=== PATIENT | female | born 1940 | race Caucasian/White ===

== ENCOUNTER 2016-06-23 15:41 | Day surgery (SDC) | payer MEDICARE ==
[~2016-06-23] VITALS: Ht 157.5 cm; Wt 71.7 kg
[2016-06-23 12:24] VITALS: BP 128/71; PULSE 98; RESP 16; O2SAT 97
[2016-06-23 13:06] VITALS: BP 135/66; PULSE 100; RESP 14; O2SAT 90
[2016-06-23 13:12] VITALS: BP 127/66; PULSE 78; RESP 14; O2SAT 97
[2016-06-23 13:22] VITALS: BP 127/70; PULSE 83; RESP 16; O2SAT 97
[~2016-06-23 15:41] MED LIST: ACET325T51 PO; AMLO5TAB2 PO; ANTI1CAP2 PO; ATOR40TA69 PO; CALC600T12 PO; CHOL100045 PO; CHOL200047 PO; COLE1TAB2 PO; HYDR25TA4 PO; IBUP200C PO; LORA0.5T PO; MILK500C PO; NAPR220C11 PO; OMEG-38 PO; Sodium Chloride LOK Flush 10 mL Syringe IVFLUSH SCH; VITA400C64 PO; fentaNYL-PF 50 mCg/mL 2 mL Inj IVPUSH PRN
--- NOTE | 2016-06-23 16:00 | ENDO ---
[address] [address] ENDOSCOPY PROCEDURE PATIENT: CHRISTIE PORTER : 1940 MR#: [id number] ADMIT: 06/23/2016 JOB ID: [id number] DATE OF SERVICE: 06/23/2016 PRIMARY CARE PHYSICIAN: Roberto Mendoza MD. PROCEDURE: Esophagogastroduodenoscopy with biopsies and polypectomy. INDICATION: The patient is a 76-year-old female with a history of breast cancer who on recent PET scan was noted to have increased FDG uptake in the distal esophagus. Therefore, a diagnostic upper endoscopy was performed. EQUIPMENT: GIF-H180. SEDATION: 1. Versed 5 mg. 2. Fentanyl 100 mcg. COMPLICATIONS: None identified. PROCEDURE INFORMATION: The patient was brought into the endoscopy suite and placed in the left lateral decubitus position. Sedation was achieved using the above-stated medications. A bite block was placed. The endoscope was then inserted through the mouth and advanced under direct visualization through the oropharynx, down the pharynx, esophagus and stomach. The scope was then advanced through the pylorus into the second portion of the duodenum. Duodenum appeared unremarkable. Scope was then slowly withdrawn. Retroflexed views were obtained in the stomach. There was a small polyp in the cardia. This was removed with a cold forceps. The GE junction was at 35 cm. It was irregular with two linear ulcers with scarring. Both of these were biopsied with a cold forceps. The scope was then slowly withdrawn. The rest of the esophagus appeared unremarkable. The patient tolerated the entire procedure without complication. FINDINGS: 1. Small gastric polyp. 2. Ulceration and scarring in the distal esophagus. RECOMMENDATIONS: Await histopathology.
--- NOTE | 2016-06-25 15:49 | PATH ---
SURGICAL PATHOLOGY Attending Physician:Xavier Fernandez MD CASE STATUS: Signed Out PATIENT NAME: CHRISTIE PORTER PID: [id number] : 1940 DATE COLLECTED:06/23/2016 20:09 SPECIMEN: 1: Stomach, Polyp, Biopsy 2: Esophagus, Biopsy CLINICAL HISTORY: 1). CARDIA POLYP BIOPSIES 2). DISTAL ESOPHAGUS BIOPSIES FINAL DIAGNOSIS: 1.CARDIA POLYP BIOPSIES: CARDIA-TYPE MUCOSA WITH NO SIGNIFICANT DIAGNOSTIC ABNORMALITY. Negative for intestinal metaplasia. Negative for dysplasia and malignancy. 2.DISTAL ESOPHAGUS, BIOPSIES: ULCERATED SQUAMOUS MUCOSA. A PAS STAIN IS NEGATIVE FOR FUNGAL ORGANISMS. Negative for dysplasia and malignancy. ICD10 codeR10.13 GROSS DESCRIPTION: The specimen is received in two formalin filled containers labeled with the patient's name. 1). The specimen is sublabeled "cardia polyp" and consists of a 0.5 x 0.2 x 0.2 CM portion of tissue which is entirely submitted in cassette 1A. 2). The specimen is sublabeled "distal esophagus" and consists of a 0.6 x 0.1 x 0.1 CM portion of tissue which is entirely submitted in cassette 2A. 06/23/2016 DAC MICRO DESCRIPTION: 2. A PAS stain was performed to evaluate for fungal organisms and is negative. A control stain showed appropriate reactivity. ICD-9 CODES: CPT CODES: 1: 41341 2: 28659, 13816 Electronically Signed Out Yajaira Champion MD [facility] [address], [place] [address] Technical component performed at [facility], [facility] [address], [place], [address]
[2016-07-02] MEDS ORDERED: OXYB10TA PO (16:40)
[2016-07-02] MEDS ORDERED: PHEN-777 PO (16:40)
[2016-07-09] MEDS ORDERED: HYDR-4003 PO (08:28)
== END 2016-06-23 23:59 | disposition home or self-care (01) ==
LOC: END 15:41
PROVIDERS: ATTEND General Practice
DX: K31.7 Polyp of stomach and duodenum (principal); K22.9 Disease of esophagus, unspecified; E04.1 Nontoxic single thyroid nodule; I10 Essential (primary) hypertension; E78.00 Pure hypercholesterolemia, unspecified; D49.4 Neoplasm of unspecified behavior of bladder; Z87.891 Personal history of nicotine dependence; Z85.3 Personal history of malignant neoplasm of breast
CPT/HCPCS: 43239; G0500

== ENCOUNTER 2016-06-24 05:33 | Day surgery (SDC) | payer MEDICARE ==
[~2016-06-24] VITALS: Ht 157.5 cm; Wt 72.1 kg
[2016-06-24] VITALS (10 sets, daily range): BP systolic 112–154; BP diastolic 45–75; PULSE 86–102; RESP 14–18; O2SAT 90–97
[~2016-06-24 05:33] MED LIST changes: -ANTI1CAP2 PO; -CHOL100045 PO; +Levofloxacin 500 mg/100 mL D5W IV ONE; +Mitomycin Inj 40 MG in Syringe 1 EACH IRRIGATION ONE; -Sodium Chloride LOK Flush 10 mL Syringe IVFLUSH SCH; -fentaNYL-PF 50 mCg/mL 2 mL Inj IVPUSH PRN
[2016-06-24] MEDS ORDERED: MetoCLOpramide 5 mg/mL 2 mL Inj ONE (05:34)
[2016-06-24] MEDS ORDERED: EPHEDrine/NS 5 mg/mL 5 mL Syringe ONE (05:34)
[2016-06-24] MEDS ORDERED: Phenylephrine/NS 100 mCg/mL 10 mL Syringe IVPUSH ONE (05:34)
[2016-06-24] MEDS ORDERED: Dexamethasone 4 mg/mL Inj ONE (05:34)
[2016-06-24] MEDS ORDERED: fentaNYL-PF 50 mCg/mL 2 mL Inj ONE (05:34)
[2016-06-24] MEDS ORDERED: Propofol 10,000 mCg/mL 20 mL Inj ONE (05:34)
[2016-06-24] MEDS ORDERED: Ondansetron 2 mg/mL 2 mL Inj ONE (05:34)
[2016-06-24] MEDS: Lactated Ringer's 1,000 ML IV SCH ×2 (05:48→07:28)
[2016-06-24] MEDS ORDERED: Famotidine 20 mg/50 mL NS Premix IV ONE (07:21)
[2016-06-24] MEDS ORDERED: Ondansetron 2 mg/mL 2 mL Inj IVPUSH PRN (08:10)
[2016-06-24] MEDS ORDERED: HYDROmorphone 1 mg/mL Inj IVPUSH PRN (08:10)
[2016-06-24] MEDS ORDERED: Lactated Ringer's 1,000 ML IV SCH (08:10)
[2016-06-24] MEDS ORDERED: MetoCLOpramide 5 mg/mL 2 mL Inj IVPUSH PRN (08:10)
[2016-06-24] MEDS ORDERED: Labetalol 5 mg/mL 4 mL Inj IV PRN (08:10)
[2016-06-24] MEDS ORDERED: EPHEDrine Sulfate 50 mg/mL Inj IVPUSH PRN (08:10)
[2016-06-24] MEDS ORDERED: hydrALAZINE 20 mg/mL Inj IVPUSH PRN (08:10)
[2016-06-24] MEDS ORDERED: Phenylephrine 10,000 mCg/mL Inj IVPUSH PRN (08:10)
[2016-06-24] MEDS ORDERED: Atropine 0.4 mg/mL Inj IVPUSH PRN (08:10)
[2016-06-24] MEDS ORDERED: Lactated Ringer's 500 ML IV PRN (08:10)
[2016-06-24] MEDS ORDERED: fentaNYL-PF 50 mCg/mL 2 mL Inj IVPUSH PRN (08:10)
--- NOTE | 2016-06-24 08:12 | PCM.HPANE ---
Patient Data Surgeon Admitting Provider: Attending Provider:Tenzin Dockery MD Primary Care Physician:Roberto Mendoza MD Other Provider:[facility] Anesthesia Reason for Visit Bladder Tumor Ht/WT & BMI Height (Feet): 5 Height (Inches): 2 Weight (Kilograms): 72.1 Body Mass Index 29.00 Allergies Coded Allergies: TAPE (Verified Allergy, Severe, blisters (Paper OK), 12/11/13) latex (Verified Allergy, Severe, Garcia Skin, 12/11/13) quinine (Verified Allergy, Severe, rash, 12/11/13) iodine (Verified Allergy, Mild, THROAT TICKLE. IV CONTRAST ONLY, 06/24/16) Uncoded Allergies: Bee Stings (Allergy, Severe, Swelling/Hives, 05/06/10) Past Anesthesia History Anesthesia History: Positive for:: Anesthesia Reactions (awoke during prior surgery), Denies:: Abnormal Airway, Difficult Intubation, Fam Anesthesia Reaction, Fam Malignant Hypertherm, Malignant Hyperthermia Diabetes History Hx Diabetes?: No MRSA MRSA: No Medications Hypertension Medication: Yes Home Meds Incl Beta Baljit: No Reported Medications Acetaminophen 325 Mg [id number] Mg PO Q4H PRN For Fever Ref 0 06/23/16 Amlodipine 5 Mg Tablet5 Mg PO DAILY Ref 0 06/23/16 Lorazepam 0.5 Mg Tablet0.5 Mg PO TID PRN For Anxiety Ref 0 06/23/16 Milk Thistle 500 Mg [id number] Mg PO BID 06/22/16 Colestipol 1 Gm Tablet2 Gm PO BID 06/16/16 Cholecalciferol (Vitamin D3) (Vitamin D3)2,000 Unit Capsule2,000 Unit PO DAILY 06/16/16 Ibuprofen 200 Mg [id number] Mg PO QID PRN For Pain Ref 0 06/16/16 Naproxen Sodium (Aleve)220 Mg Qpfrccn165 Mg PO BID PRN For Pain 06/16/16 [place]-3/Dha/Epa/Fish Oil (Fish Oil 1,000 mg Softgel)1 Each Capsule2 Each PO DAILY 05/15/14 Calcium Carbonate (Calcium)600 Mg Ckoavk356 Mg PO DAILY 05/15/14 Hydrochlorothiazide 25 Mg Lwbmge35 Mg PO DAILY 30 Days Ref 0 12/11/13 Vitamin E Mixed (Vitamin E)400 Unit Pptjvgn926 Unit PO DAILY 30 Days 12/11/13 Atorvastatin Calcium 40 Mg Fzmakf94 Mg PO PM #30 TABLET Ref 0 12/11/13 Discontinued Reported Medications Cholecalciferol (Vitamin D3) (Vitamin D)1,000 Unit Capsule1,000 Unit PO DAILY # 1 BOTTLE Ref 0 06/22/16 Antiox#10/Om3/Dha/Epa/Lut/Zeax (I-Caps with Lutein-[place] 3 Sfg)1 Each Capsule1 Each PO BID 05/15/14 Citalopram 10 Mg Hoxmuk64 Mg PO AM Ref 0 05/15/14 Cholecalciferol (Vitamin D3) (Vitamin D-3)2,000 Unit Capsule2,000 Unit PO DAILY 12/11/13 History History of ENT Problems?: No HEENT History: Positive for:: Sinus Problem (HAY FEVER) Denies:: Abnormal Airway Difficult Intubation Dysphagia Hearing Problem Hx of Heart Problems?: Yes Cardiovascular History: Positive for:: Chest Pain (sometimes, not sure if its reflux) Hypertension Denies:: AICD Atrial Fibrillation Congestive Heart Failure Pacemaker Valvular Heart Disease Hx of Respiratory Problem?: No Respiratory History: Positive for:: Pneumonia Denies:: Asthma COPD Cough Emphysema Hemoptysis Oxygen Administration Tuberculosis Use of C-PAP Machine Hx Neurologic Problems?: Yes Neurological History: Positive for:: Headaches Denies:: CVA Multiple Sclerosis Parkinson's Disease Seizures TIA Hx of GI Problems?: Yes Gastrointestinal History: Positive for:: Gall Bladder Disease (removed) Denies:: Cirrhosis Diverticulitis (osis) Gastroesphageal Reflux Gastrointestinal Bleeding Hepatitis Hiatal Hernia Rectal Bleeding Other GI Pertinent History: persistent retrogastic lymph node being monitored Hx of Problems?: Yes Genitourinary History: Denies:: Kidney Stones HX of Peritoneal Dialysis: No Other Pertinent History: bladder tumor current admission problem Female Hx: Positive for:: Problems with Breasts? (right lumpectomy for CA) Denies:: Currently (hysterectomy) Skin History: Positive for:: History Skin Disorders? (SKIN ISSUES RT BREAST OVER ABCESS AREA) Denies:: Pressure Ulcers Hx Musculoskeletal Problems?: Yes Musculoskeletal History: Positive for:: Musculoskeletal Trauma (osteoporosis) Denies:: Joint Replacement Hx of Psycho/Social Problems?: No Psycho Social History: Positive for:: Anxiety Denies:: Hx Depression Hx Surgeries?: Yes (amelia/bso, appe, tayler, tonsil, rt lumpectomy) Hx Any Other Health Problems?: Yes Other History: Positive for:: Cancer (rt breast) Thyroid Disease (thyroid nodule being monitored) Denies:: Endocrine Disease Hospitalization History Blood Transfusions: Denies:: Blood Transfusions Hx Diabetes: No Hx Alcohol Use: Yes (OCCAS)Hx Substance Use: No Smoking Status: Former Smoker Have You Smoked inLast 12 mo: No Stop/Bang S-Snoring: Do You Snore Loudly: No T-Tired: feel tired, fatigued: No O-Obsered: Observed not breath: No P-Blood Pressure: treated: Yes B- Body Mass Index > 35 kg/m2: No A- Age over 50: Yes N- Neck Large Circumference: No G- Gender Male: No KAUR Total Score: 2 Risk Assessment Category Category 1A: Patient has history of documented sleep apnea, and HAS NOT received any narcotic, sedative or anesthesia administration during this stay. Category 1B: Patient has history of documented sleep apnea, and HAS received any narcotic , sedative or anesthesia administration during this stay Category 2: Patient has SUSPECTED Obstructive Sleep Apnea, and HAS received any narcotic , sedative or anesthesia administration during this stay. Category 3: Patient has SUSPECTED Obstructive Sleep Apnea and HAS NOT received narcotic, sedative or anesthesia administration during this stay. Category 4: Outpatient in Procedural Areas with known sleep apnea or who screen positive for High Risk via the STOP/BANG questionnaire. Exam Exam Vital Signs Vital Signs Date Time Temp Pulse Resp B/P Pulse Ox O2 Delivery O2 Flow Rate FiO2 06/24/16 05:59 36.9 98 16 154/75 95 Room Air General Appearance: Alert, Oriented X3, Cooperative HEENT/AIRWAY: MP 2, Neck Movement (FROM), Mouth Opening (3 FBMO) Lungs: Clear to Auscultation, Normal Air Movement Heart: Exam Unremarkable, Regular Rate/Rhythm, No Murmurs/Rubs/Gallops Meds/Labs/Diagnostics Admission Meds Current Medications Lactated Ringer's (Lr) 1,000 ml @ 120 mls/hr Q8H20M IV Last administered on t 05:48; Start 06/24/16 at 05:00; Stop 06/24/16 at 13:19 Plan Impression Patient chart reviewed, patient interviewed and anesthestic plan with risks, benefits, and alternatives discussed, and informed consent obtained. NPO Status: 06/23/16 ASA Physical Status: ASA2 Mod Systemic Disease Anesthetic Plan: GA Bene/Risks/Altern/Consents: Yes HP Complete Prior to Induction: Yes El Garcia MD Jun 24, 2016 07:04
[2016-06-24] MEDS ORDERED: Belladonna Alk-Opium 60 mg Rectal Suppository RECTAL ONE ×2 (08:13→08:14)
--- NOTE | 2016-06-24 08:58 | PCM.SURGPO ---
Immediate Operative Note Date of Surgery: Jun 24, 2016 Pre Operative Diagnosis Bladder tumors Post Operative Diagnosis Bladder tumors Procedure Cystoscopy, transurethral resection of bladder tumors (2-5cm) Surgeon and It Application Development Manager Surgeon: Tenzin Dockery MD Assistants: None Findings Cystoscopy revealed papillary bladder tumors x 2 (approx. 2-3cm R inferoposterior wall and approx. 1-2cm R inferolateral wall). Bladder tumors were resected in their entirety using bipolar loop electrocautery. B/L ureteral orifices were seen to be intact and well-preserved at the end of the case. Complications There were no periprocedural complications identified. Surgical Specimen Removed: Yes Specimen sent to Pathology: Yes Surgical Specimen description: R inferoposterior wall bladder tumor, R inferolateral wall bladder tumor Anesthetic Administered: GA Grafts, Implants: Other (20F silicone Doshi catheter to straight drainage) Output, Estimated Blood Loss: <5 Blood Admin during surgery: No Additional information Patient to be discharged home when stable, to return to see me in the office in 2-2.5 weeks for post-op visit and trial of void. Will leave Doshi catheter in for 2-2.5 weeks secondary to deep resection during TURBT. Tenzin Dockery MD Jun 24, 2016 08:58
--- NOTE | 2016-06-24 09:25 | PCM.DISURG ---
Surgical Discharge Instruction Date of Service Jun 24, 2016 Dates of Hospitalization Date of Hospital Admission Jun 24, 2016 Providers Admitting Physician: Tenzin Dockery MD Primary Care Physician: Roberto Mendoza MD Attending Physician: Tenzin Dockery MD Discharge Diagnosis Discharge Diagnosis Bladder tumors Post Operative diagnosis Bladder tumors Diet Discharge Diet: No restrictions, Other (Drink at least 10-12 8oz. glasses (3 liters) of fluids per day as long as there is blood in the urine) Activity Discharge Activity-General: No restrictions, No driving while taking narcotic Dressing and Incisional Care Hygiene: May shower Follow Up Plan Follow-up Provider (F9): Tenzin Dockery MD Follow-up appointment: Weeks (2 - 2.5 weeks for post-op visit and trial of void ) Call your provider for: Fever, Chills, Increasing abdominal pain, Vomiting, Other (Non-draining Doshi catheter, pain uncontrolled by pain medications) Tenzin Dockery MD Jun 24, 2016 09:25
[2016-06-24] MEDS ORDERED: HYDROcodone-APAP 5-325 mg Tablet PO PRN (09:30)
--- NOTE | 2016-06-24 09:41 | PCM.ANEP1 ---
Post Anesthesia Phase 1 PACU Phase 1 Assessment Date of Service: Jun 24, 2016 Vital Signs Vital Signs Date Time Temp Pulse Resp B/P Pulse Ox O2 Delivery O2 Flow Rate FiO2 06/24/16 09:22 100 16 123/51 93 06/24/16 09:10 90 14 118/56 96 Nasal Cannula 3 06/24/16 09:05 88 16 126/51 97 Nasal Cannula 3 06/24/16 09:00 36.6 91 14 116/45 97 Nasal Cannula 3 06/24/16 08:55 89 16 113/46 92 Nasal Cannula 2 06/24/16 08:50 99 15 112/53 90 Room Air 06/24/16 08:45 101 16 121/64 95 Room Air 06/24/16 08:41 37.2 102 18 119/55 97 Simple Mask 8 06/24/16 05:59 36.9 98 16 154/75 95 Room Air Anesthetic Administered: GA Level of Alertness: Awake, talking CAIN's with Equal Strength: Yes Pain: No Nausea or Vomiting: No Oxygen Delivery: Simple Mask Lungs: Clear to Auscultation, Normal Air Movement Dermatome Level: Full Sensation El Garcia MD Jun 24, 2016 09:41
--- NOTE | 2016-06-24 09:41 | PCM.ANEP2 ---
Post Anesthesia Evaluation ASA/CMS Post Anesthesia VS in Patient's Normal Range?: Yes Resp Stable; Airway Patent?: Yes CV Function & Hydration Stable: Yes Mental Status Recovered?: Yes Pain control Satisfactory?: Yes N/V Control Satisfactory?: Yes El Garcia MD Jun 24, 2016 09:41
--- NOTE | 2016-06-25 11:38 | PATH ---
SURGICAL PATHOLOGY Attending Physician:Tenzin Dockery MD CASE STATUS: Signed Out PATIENT NAME: CHRISTIE PORTER PID: [id number] : 1940 DATE COLLECTED:06/24/2016 17:04 SPECIMEN: 1: Bladder, Biopsy 2: Bladder, Biopsy CLINICAL HISTORY: A: RIGHT INFERIOR /LATERAL WALL BLADDER TUMOR B: RIGHT INFERIOR/POSTERIOR WALL BLADDER TUMOR FINAL DIAGNOSIS: 1.RIGHT INFERIOR/LATERAL WALL URINARY BLADDER BIOPSY: PAPILLARY UROTHELIAL CARCINOMA, HIGH GRADE. NEGATIVE FOR EVIDENCE OF INVASION OF LAMINA PROPRIA. SMALL AMOUNT OF MUSCULARIS PROPRIA PRESENT, BUT NEGATIVE FOR TUMOR. 2.RIGHT INFERIOR/POSTERIOR WALL URINARY BLADDER BIOPSY: PAPILLARY UROTHELIAL CARCINOMA, LOW GRADE, NEGATIVE FOR EVIDENCE OF INVASION OF LAMINA PROPRIA. MUSCULARIS PROPRIA PRESENT, BUT NEGATIVE FOR TUMOR. ICD10 CODE C67.2 NOTE: As part of a routine director quality assurance, Dr. Yajaira Champion has also reviewed this case and agrees with the diagnosis. GROSS DESCRIPTION: The specimen is received in two formalin filled containers labeled with the patient's name. 1). The specimen is sublabeled "right inferior/lateral wall bladder tumor" and consists of 3 portions of tissue which aggregate to 0.5 x 0.5 x 0.4 CM. The specimen is entirely submitted in cassette 1A. 2). The specimen is sublabeled "right inferior/posterior wall bladder tumor" and consists of 3 portions of tissue which aggregate to 0.7 x 0.7 x 0.5 CM. The specimen is entirely submitted in cassette 2A. 06/24/2016 DAC MICRO DESCRIPTION: See diagnosis. ICD-9 CODES: CPT CODES: 1: 60706 2: 58357 Electronically Signed Out Carlos Ahn MD [facility] [address], [place] [address] Technical component performed at [facility], [facility] [address], [place], [address]
--- NOTE | 2016-06-26 09:59 | OP ---
[address] [address] OPERATIVE REPORT PATIENT: CHRISTIE PORTER : 1940 MR#: [id number] ADMIT: 06/24/2016 JOB ID: [id number] DATE OF SURGERY: 06/24/2016 PREOPERATIVE DIAGNOSIS(ES): Bladder tumors. POSTOPERATIVE DIAGNOSIS(ES): Bladder tumors. PROCEDURE: Cystoscopy, transurethral resection of bladder tumors (2-5 cm). SURGEON: Tenzin Dockery MD PLASTIC PRESS OPERATOR: None. ANESTHESIA: General. ESTIMATED BLOOD LOSS: Less than 5 mL. SPECIMENS: Right inferoposterior wall bladder tumor, right inferolateral wall bladder tumor. DRAINS: A 20-[place] Islander silicone Doshi catheter to straight drainage. COMPLICATION: None. CONDITION: Stable. FINDINGS: Cystoscopy revealed papillary bladder tumors x 2 (approximately 2-3 cm right inferoposterior wall and approximately 1-2 cm right inferolateral wall). Bladder tumors were resected in their entirety using bipolar loop electrocautery. Bilateral ureteral orifices were seen to be intact and well-preserved at the end the case. INDICATIONS: The patient is a 76-year-old female with gross hematuria, found on office cystoscopy to have bladder tumors. The patient now presents for cystoscopy, transurethral resection of bladder tumors and mitomycin intravesical instillation. DESCRIPTION OF PROCEDURE: The patient was brought to the operating room and placed supine on the operating room table. The patient was given Levaquin IV antibiotics. Sequential compression device boots were placed. General anesthesia was administered. The patient was brought down into the dorsal lithotomy position. The patient was prepped and draped in a standard surgical fashion. A 26-[place] Islander continuous flow resectoscope was placed in the urethra without difficulty. Cystoscopy revealed normal urethra, bilateral ureteral orifices in normal position, and papillary bladder tumors x 2, with an approximately 2-3 cm bladder tumor on the right inferoposterior wall and an approximately 1-2 cm papillary bladder tumor on the right inferolateral wall. Both bladder tumors were resected in their entirety using bipolar loop electrocautery. Bladder tumors specimens were sent to Pathology for permanent specimen. The bases of the bladder tumor resected areas including normal surrounding bladder mucosa were fulgurated using bipolar loop electrocautery. Excellent hemostasis was achieved. Bilateral ureteral orifices were seen to be intact and well-preserved at the end of the case. Of note, the patient's bladder wall was seen to be thin-walled. Continuous-flow resectoscope was removed from the patient. A 20-[place] Islander silicone Doshi catheter was placed through the urethra and into the bladder without difficulty. Doshi catheter balloon was inflated with 10 mL of sterile water. Doshi catheter was placed to straight drainage. Skin was cleaned and dried. The patient was placed in the supine position. The patient was awakened from general anesthesia and transferred to the recovery room in stable condition. The patient tolerated the procedure well. Plan is for the patient be discharged home when stable and to return to see me in the office in 2 - 2 1/2 weeks for postoperative visit and trial of void. Will leave Doshi catheter in for 2 - 2 1/2 weeks secondary to deep resection during TURBT. MTDD
[2016-07-02] MEDS ORDERED: OXYB10TA PO (16:40)
[2016-07-02] MEDS ORDERED: PHEN-777 PO (16:40)
[2016-07-09] MEDS ORDERED: HYDR-4003 PO (08:28)
== END 2016-06-24 23:59 | disposition home or self-care (01) ==
LOC: SAS 05:33
PROVIDERS: ATTEND Urology
DX: C67.4 Malignant neoplasm of posterior wall of bladder (principal); I10 Essential (primary) hypertension; Z85.3 Personal history of malignant neoplasm of breast
CPT/HCPCS: 52235; J1100; J2370; J2405; J2765; J3490; J7120

== ENCOUNTER 2016-07-08 09:13 | Day surgery (SDC) | payer MEDICARE ==
[~2016-07-08] VITALS: Ht 157.5 cm; Wt 71.7 kg
[2016-07-08] VITALS (10 sets, daily range): BP systolic 110–153; BP diastolic 53–76; PULSE 69–106; RESP 13–18; O2SAT 92–98
[~2016-07-08 09:13] MED LIST changes: +CeFAZolin 2 Gm/50 mL D5W IV Premix IV ONE; +Lactated Ringer's 1,000 ML IV SCH; -Levofloxacin 500 mg/100 mL D5W IV ONE; -Mitomycin Inj 40 MG in Syringe 1 EACH IRRIGATION ONE; +OXYB10TA PO; +PHEN-777 PO
[2016-07-08] MEDS ORDERED: Ondansetron 2 mg/mL 2 mL Inj ONE (09:14)
[2016-07-08] MEDS ORDERED: Propofol 10,000 mCg/mL 20 mL Inj ONE (09:14)
[2016-07-08] MEDS ORDERED: EPHEDrine/NS 5 mg/mL 5 mL Syringe ONE (09:14)
[2016-07-08] MEDS ORDERED: Neostigmine 1 mg/mL 5 mL Inj ONE (09:14)
[2016-07-08] MEDS ORDERED: fentaNYL-PF 50 mCg/mL 2 mL Inj ONE (09:14)
[2016-07-08] MEDS ORDERED: Rocuronium 10 mg/mL 5 mL Inj ONE (09:14)
[2016-07-08] MEDS ORDERED: Phenylephrine/NS-PF 100 mCg/mL 5 mL Syringe IVPUSH ONE (09:14)
[2016-07-08] MEDS ORDERED: Dexamethasone 4 mg/mL Inj ONE (09:14)
[2016-07-08] MEDS ORDERED: Glycopyrrolate 0.2 mg/mL 5 mL Inj ONE (09:14)
[2016-07-08] MEDS ORDERED: Esmolol 10,000 mCg/mL 10 mL Inj ONE (09:14)
[2016-07-08] MEDS ORDERED: MetoCLOpramide 5 mg/mL 2 mL Inj ONE (09:14)
[2016-07-08] MEDS ORDERED: Lactated Ringer's 1,000 ML IV ONE ×2 (09:50→15:36)
[2016-07-08 10:14] LABS: BASOPHILS % (AUTO) 0.5 % (0-3); EOSINOPHILS % (AUTO) 1.7 % (0-5); MONOCYTES % (AUTO) 7.8 % (4-12); Mean Corpuscular Hemoglobin 29.5 pg (27.0-35.0); Mean Corpuscular Volume 87.4 fL (81-100); NEUTROPHILS % (AUTO) 66.9 % (40-74); Platelet Count 321 bil/L (150-400)
[2016-07-08] MEDS ORDERED: HYDROmorphone 1 mg/mL Inj IVPUSH PRN (13:15)
[2016-07-08] MEDS ORDERED: fentaNYL-PF 50 mCg/mL 2 mL Inj IVPUSH PRN (13:15)
[2016-07-08] MEDS ORDERED: Atropine 0.4 mg/mL Inj IVPUSH PRN (13:15)
[2016-07-08] MEDS ORDERED: Ondansetron 2 mg/mL 2 mL Inj IVPUSH PRN ×2 (13:15→14:30)
[2016-07-08] MEDS ORDERED: Phenylephrine 10,000 mCg/mL Inj IVPUSH PRN (13:15)
[2016-07-08] MEDS ORDERED: Lactated Ringer's 1,000 ML IV SCH (13:15)
[2016-07-08] MEDS ORDERED: Lactated Ringer's 500 ML IV PRN (13:15)
[2016-07-08] MEDS ORDERED: hydrALAZINE 20 mg/mL Inj IVPUSH PRN (13:15)
[2016-07-08] MEDS ORDERED: EPHEDrine Sulfate 50 mg/mL Inj IVPUSH PRN (13:15)
[2016-07-08] MEDS ORDERED: Labetalol 5 mg/mL 4 mL Inj IV PRN (13:15)
[2016-07-08] MEDS ORDERED: MetoCLOpramide 5 mg/mL 2 mL Inj IVPUSH PRN ×2 (13:15→14:30)
--- NOTE | 2016-07-08 13:15 | PCM.HPANE ---
Patient Data Surgeon Admitting Provider: Attending Provider:Xavier Fernandez MD Primary Care Physician:Roberto Mendoza MD Other Provider:[facility] [place] Anest[facility] Reason for Visit Perigastric Mass Ht/WT & BMI Height (Feet): 5 Height (Inches): 2 Weight (Kilograms): 71.7 Body Mass Index 29.00 Allergies Coded Allergies: TAPE (Verified Allergy, Severe, blisters (Paper OK), 07/08/16) latex (Verified Allergy, Severe, Garcia Skin, 07/08/16) quinine (Verified Allergy, Severe, rash, 07/08/16) iodine (Verified Allergy, Mild, THROAT TICKLE. IV CONTRAST ONLY, 07/08/16) Uncoded Allergies: Bee Stings (Allergy, Severe, Swelling/Hives, 05/06/10) Past Anesthesia History Anesthesia History: Positive for:: Anesthesia Reactions (awoke during prior surgery), Denies:: Abnormal Airway, Difficult Intubation, Fam Anesthesia Reaction, Fam Malignant Hypertherm, Malignant Hyperthermia Diabetes History Hx Diabetes?: No MRSA MRSA: No Medications Hypertension Medication: Yes Home Meds Incl Beta Baljit: No Reported Medications Oxybutynin Chloride ER 10 Mg Tab.er.2415 Mg PO DAILY Ref 0 07/02/16 Acetaminophen 325 Mg Zpfwcg233 Mg PO Q4H PRN For Fever Ref 0 06/23/16 Amlodipine 5 Mg Tablet5 Mg PO DAILY Ref 0 06/23/16 Lorazepam 0.5 Mg Tablet0.5 Mg PO TID PRN For Anxiety Ref 0 06/23/16 Milk Thistle 500 Mg [id number] Mg PO BID 06/22/16 Colestipol 1 Gm Tablet2 Gm PO BID 06/16/16 Cholecalciferol (Vitamin D3) (Vitamin D3)2,000 Unit Capsule2,000 Unit PO DAILY 06/16/16 Ibuprofen 200 Mg Biqbgwt643 Mg PO QID PRN For Pain Ref 0 06/16/16 Naproxen Sodium (Aleve)220 Mg Fuoflnm595 Mg PO BID PRN For Pain 06/16/16 Buchanan-3/Dha/Epa/Fish Oil (Fish Oil 1,000 mg Softgel)1 Each Capsule2 Each PO DAILY 05/15/14 Calcium Carbonate (Calcium)600 Mg Bdhlsf151 Mg PO DAILY 05/15/14 Hydrochlorothiazide 25 Mg Bibrrx97 Mg PO DAILY 30 Days Ref 0 12/11/13 Atorvastatin Calcium 40 Mg Wdhmea82 Mg PO PM #30 TABLET Ref 0 12/11/13 Discontinued Reported Medications Phenazopyridine 200 Mg Aybgmo273 Mg PO TID PRN bladder pain Ref 0 07/02/16 Vitamin E Mixed (Vitamin E)400 Unit Gufmyxu893 Unit PO DAILY 30 Days 12/11/13 History History of ENT Problems?: Yes HEENT History: Positive for:: Dysphagia (solids at least once weekly) Sinus Problem (HAY FEVER) Denies:: Abnormal Airway Difficult Intubation Hearing Problem Hx of Heart Problems?: Yes Cardiovascular History: Positive for:: Chest Pain (sometimes, not sure if its reflux) Hypertension Denies:: AICD Atrial Fibrillation Congestive Heart Failure Heart Murmur Irregular Heartbeat Pacemaker Valvular Heart Disease Hx of Respiratory Problem?: No Respiratory History: Positive for:: Pneumonia Denies:: Asthma COPD Cough Emphysema Hemoptysis Oxygen Administration Tuberculosis Use of C-PAP Machine Hx Neurologic Problems?: Yes Neurological History: Positive for:: Headaches Denies:: CVA Dementia Multiple Sclerosis Parkinson's Disease Seizures Hx of GI Problems?: Yes Gastrointestinal History: Positive for:: Gall Bladder Disease (removed) Denies:: Cirrhosis Diverticulitis Gastroesphageal Reflux Gastrointestinal Bleeding Hepatitis Hiatal Hernia Rectal Bleeding Other GI Pertinent History: retrogastric mass current admission problem Hx of Problems?: Yes Genitourinary History: Denies:: Kidney Stones HX of Peritoneal Dialysis: No Other Pertinent History: hx of bladder tumors, turbt done 06/24/16- nowak catheter remains in place Female Hx: Positive for:: Problems with Breasts? (right partial mastectomy, lymph node bx hx) Denies:: Currently (Hysterectomy) Skin History: Denies:: History Skin Disorders? Pressure Ulcers Hx Musculoskeletal Problems?: Yes Musculoskeletal History: Positive for:: Musculoskeletal Trauma (osteoporosis) Osteoarthritis Denies:: Back Injury Joint Replacement Hx of Psycho/Social Problems?: No Psycho Social History: Positive for:: Anxiety Denies:: Hx Depression Hx Surgeries?: Yes (amelia/bso, appe, tayler, tonsil, rt lumpectomy, turbt) Hx Any Other Health Problems?: Yes Other History: Positive for:: Cancer (rt breast) Thyroid Disease (thyroid nodule being monitored) Denies:: Endocrine Disease Hospitalization History Blood Transfusions: Denies:: Blood Transfusions Hx Diabetes: No Hx Alcohol Use: YesAlcoholic Drinks Per Day: 2-3 x weeklyHx Substance Use: No Smoking Status: Former Smoker Have You Smoked inLast 12 mo: No Stop/Bang S-Snoring: Do You Snore Loudly: No T-Tired: feel tired, fatigued: No O-Obsered: Observed not breath: No P-Blood Pressure: treated: Yes B- Body Mass Index > 35 kg/m2: No A- Age over 50: Yes N- Neck Large Circumference: No G- Gender Male: No KAUR Total Score: 2 KAUR Risk Assessment: Low Risk, <3 Yes Risk Assessment Category Category 1A: Patient has history of documented sleep apnea, and HAS NOT received any narcotic, sedative or anesthesia administration during this stay. Category 1B: Patient has history of documented sleep apnea, and HAS received any narcotic , sedative or anesthesia administration during this stay Category 2: Patient has SUSPECTED Obstructive Sleep Apnea, and HAS received any narcotic , sedative or anesthesia administration during this stay. Category 3: Patient has SUSPECTED Obstructive Sleep Apnea and HAS NOT received narcotic, sedative or anesthesia administration during this stay. Category 4: Outpatient in Procedural Areas with known sleep apnea or who screen positive for High Risk via the STOP/BANG questionnaire. Exam Exam Vital Signs Vital Signs Date Time Temp Pulse Resp B/P Pulse Ox O2 Delivery O2 Flow Rate FiO2 07/08/16 09:35 36.4 69 14 143/65 96 Room Air General Appearance: Alert, Oriented X3, Cooperative, No Acute Distress HEENT/AIRWAY: MP 2 Lungs: Clear to Auscultation, Normal Air Movement Heart: Exam Unremarkable, Regular Rate/Rhythm, No Murmurs/Rubs/Gallops Meds/Labs/Diagnostics Admission Meds Current Medications Lactated Ringer's (Lr) 1,000 ml @ ud STK-MED ONCE IV Last administered on t 09:50; Start 07/08/16 at 09:50; Stop 07/08/16 at 09:51; Status DC Labs Test 07/08/16 10:00 White Blood Count 10.1th/mm3 (3.8-10.1) Red Blood Count 4.61mil/mm3 (3.90-5.20) Hemoglobin 13.6g/dL (12.0-15.6) Hematocrit 40.3% (35.0-46.0) Mean Corpuscular Volume 87.4fL (81-100) Mean Corpuscular Hemoglobin 29.5pg (27.0-35.0) Mean Corpuscular Hemoglobin Concent 33.7% (32.0-37.0) Red Cell Distribution Width 12.4% (12.3-15.4) Platelet Count 321bil/L (150-400) Neutrophils (%) (Auto) 66.9% (40-74) Lymphocytes (%) (Auto) 22.8% (14-46) Monocytes (%) (Auto) 7.8% (4-12) Eosinophils (%) (Auto) 1.7% (0-5) Basophils (%) (Auto) 0.5% (0-3) Plan Impression Patient chart reviewed, patient interviewed and anesthestic plan with risks, benefits, and alternatives discussed, and informed consent obtained. NPO Status: 0730 07/08/16 ASA Physical Status: ASA2 Mod Systemic Disease Anesthetic Support Modalities: Arterial Line Anesthetic Plan: GA Bene/Risks/Altern/Consents: Yes HP Complete Prior to Induction: Yes El Brenner MD Jul 08, 2016 10:29
[2016-07-08] MEDS ORDERED: Bupivacaine-MPF 0.5% W/EPI 30 mL Inj INFILTRATE ONE (13:26)
--- NOTE | 2016-07-08 14:25 | PCM.ANEP1 ---
Post Anesthesia Phase 1 PACU Phase 1 Assessment Vital Signs Vital Signs Date Time Temp Pulse Resp B/P Pulse Ox O2 Delivery O2 Flow Rate FiO2 07/08/16 09:35 36.4 69 14 143/65 96 Room Air Anesthetic Administered: GA Level of Alertness: Awake, talking CAIN's with Equal Strength: Yes Pain: No Nausea or Vomiting: No Oxygen Delivery: Simple Mask Lungs: Clear to Auscultation, Normal Air Movement Summary VSS, arterial line to be removed in PACU El Brenner MD Jul 08, 2016 14:25
--- NOTE | 2016-07-08 14:26 | PCM.ANEP2 ---
Post Anesthesia Evaluation ASA/CMS Post Anesthesia VS in Patient's Normal Range?: Yes Resp Stable; Airway Patent?: Yes CV Function & Hydration Stable: Yes Mental Status Recovered?: Yes Pain control Satisfactory?: Yes N/V Control Satisfactory?: Yes El Brenner MD Jul 08, 2016 14:26
[2016-07-08] MEDS ORDERED: LORazepam 0.5 mg Tablet PO PRN (14:30)
--- NOTE | 2016-07-08 14:46 | OP ---
[address] [address] OPERATIVE REPORT PATIENT: CHRISTIE PORTER : 1940 MR#: [id number] ADMIT: 07/08/2016 JOB ID: [id number] DATE OF SURGERY: 07/08/2016 ANESTHESIA: General. PREOPERATIVE DIAGNOSIS(ES): PET-avid perigastric mass. POSTOPERATIVE DIAGNOSIS(ES): PET-avid gastric tumor. OPERATION: Laparoscopic resection of gastric tumor with gastric wedge resection. SURGEON: Xavier Fernandez MD. ASSISTANTS: Becka Plascencia PA-C (the technical expertise of the construction assistant was required for the safe and timely completion of the case) and LORENA Mart. COMPLICATIONS: None. ESTIMATED BLOOD LOSS: Minimal. CONDITION: Satisfactory. SPECIMEN: Gastric mass. FINDINGS: There is an approximately 2.5 cm, hypervascular, pedunculated mass arising from the posterior gastric wall along the greater curve. This was resected with a wedge resection encompassing some normal stomach. INDICATIONS/SIGNIFICANT HISTORY: The patient is a 76-year-old woman with a history of a right-sided T2 N0 breast cancer approximately six years ago. This was treated with surgery and breast radiation. In 2011, she was noted to have a 1 cm retrogastric lymph node on a CT scan of the chest. Followup CT scan a year later showed it had increased to 1.5 cm. The patient recently had new-onset hematuria. CT scan was obtained to evaluate this and demonstrated now that this so-called node was 2.2 cm. PET-CT was then obtained which showed that it had an SUV of 7.6. She was therefore referred to me for consideration of surgical resection. Preoperatively, I performed an EGD, and this was essentially unremarkable. She also received post splenectomy vaccines two weeks prior to today's procedure. OPERATIVE TECHNIQUE: The patient was taken into the operating room and placed in supine position. General anesthesia was administered. Perioperative antibiotics were given. The patient was then placed in a semi left lateral decubitus position. The abdomen was prepped and draped in a standard surgical fashion. A procedure pause was performed. Entry was then gained into the abdomen through a small left subcostal incision using a 5 mm Optiview trocar. Pneumoperitoneum was achieved without complication. Local anesthetic was injected, followed by insertion of three other 5 mm ports. Eventually, the mid one of these was upsized to a 12 mm port. All of these were in subcostal locations. Initially, the mass was not visible. I decided to take down the short gastrics at the upper portion of the greater curve. This was accomplished using a LigaSure. After entering the lesser sac and taking down the short gastrics adequately, I was able to visualize the mass. This appeared to be arising from the posterior wall of the stomach. It was fairly mobile. Once I had dissected enough of the perigastric fat, I was able to get a SABINE 60 gold load across the stomach adjacent to the mass, taking a wedge of normal stomach to remove the mass. The mass was then placed in an EndoCatch bag and removed through the 12 mm port site. The surgical wound was inspected and found to be hemostatic. The 12 mm port site fascia was closed with 0 PDS suture. Pneumoperitoneum was released, and the remaining ports removed. The skin was closed using 4-0 Monocryl. The entire procedure was well tolerated without complication.
[2016-07-08] MEDS: Dextrose 5% Lactated Ringer's 1,000 ML IV SCH (16:08)
--- NOTE | 2016-07-08 17:26 | NUR ---
Post Op Pt arrived to [facility] rm 1027 from PACU at approx 1545. Rec'd report from ELVI Brandt. Pt arrived via gurney and was able to scoot herself over to the hospital bed. IV intact, nowak patent and draining to gravity. Reports 3/10 pain and this is tolerable. a&ox3, reynolds. oriented to room and call light, video on prior to assmt.
[2016-07-09] VITALS: BP 123/65; PULSE 86; RESP 16; O2SAT 95
[2016-07-09] MEDS: Dextrose 5% Lactated Ringer's 1,000 ML IV SCH ×2 (00:30→10:30)
--- NOTE | 2016-07-09 02:01 | NUR ---
Activity/Pain Patient up walking hallways with SBA this evening. Gait steady. Denied lightheadedness/dizziness. Receiving Tylenol 650mg PO, as patient states narcotics make her feel queasy, for pain management with effective results. Abd pain down from a 4/10 to 2/10, which she states is tolerable. Denies breakthrough pain during reassessments. Received Zofran 4mg IVP once for c/o nausea with effective results.
[2016-07-09] MEDS: HYDROcodone-APAP 5-325 mg Tablet PO PRN ×3 (03:16→09:58)
[2016-07-09 05:01] VITALS: BP 149/76; PULSE 89; RESP 18; O2SAT 96
[2016-07-09 07:32] LABS: BASOPHILS % (AUTO) 0 % (0-3); EOSINOPHILS % (AUTO) 0 % (0-5); MONOCYTES % (AUTO) 4.4 % (4-12); Mean Corpuscular Hemoglobin 29.5 pg (27.0-35.0); Mean Corpuscular Volume 87.9 fL (81-100); NEUTROPHILS % (AUTO) 87.4 % (40-74); Platelet Count 331 bil/L (150-400)
--- NOTE | 2016-07-09 08:27 | PCM.DISURG ---
Surgical Discharge Instruction Date of Service Jul 09, 2016 Dates of Hospitalization Date of Hospital Admission Providers Admitting Physician: Primary Care Physician: Roberto Mendoza MD Attending Physician: Xavier Fernandez MD Discharge Diagnosis Discharge Diagnosis gastric tumor Diet Discharge Diet: Other (Soft diet, small portions, for one week. Then ease back into regular diet) Activity Discharge Activity-General: Be up and about, No driving while taking narcotic Dressing and Incisional Care Hygiene: May shower Follow Up Plan Follow Up Plan f/u with Smitha in 2 weeks Call your provider for: Fever, Chills, Increasing abdominal pain, Vomiting Xavier Fernandez MD Jul 09, 2016 08:27
[2016-07-09] MEDS ORDERED: HYDR-4003 PO (08:28)
[2016-07-09 09:04] VITALS: BP 133/62; PULSE 75; RESP 18; O2SAT 93
--- NOTE | 2016-07-09 09:54 | PCM.DC.SUR ---
Discharge Summary Date of Service: Date of Hospital Admission: 07/08/2016 Date of Operation(s): 07/08/2016 Date of Discharge: 07/09/2016 Diagnosis at Time of Discharge Primary diagnosis: PET avid gastric tumor Other diagnoses: 1. T2 N0 right breast cancer, partial mastectomy 2010 2. Hypertension 3. Arthritis 4. Hyperlipidemia 5. Former cigarette smoker 6. Bladder tumors Problems: Operation Laparoscopic resection of gastric tumor with gastric wedge resection. Brief History and Physical: Ms Perez is a very pleasant 76-year-old woman referred in consultation by Dr. Barnes regarding further evaluation and management of abnormalities seen on a recent PET CT scan. She has a history of a right-sided T2 N0 breast cancer for which she underwent partial mastectomy and sentinel lymph node biopsy approximately 6 years ago. She received 5 years of adjuvant hormonal therapy. In 2011 she was noted to have a 1 cm retrogastric lymph node on a CT of the chest. Follow-up CT scan a year later showed it had increased to 1.[address] scan in the pelvis to evaluate for new onset hematuria showed that it was now 2.2 cm. A PET/CT was obtained which showed that the had an SUV of 7.6. In addition she was noted to have bilateral thyroid metabolic activity (she has known bilateral thyroid nodules which have previously been biopsied and followed sonographically), as well as some increased activity in the distal esophagus. She has subsequently undergone evaluation for the hematuria with cystoscopy demonstrating bladder tumors. She is scheduled to undergo transurethral resection of these tumors. She has also been scheduled to undergo sonographic guided thyroid biopsy on July 01. She does endorse symptoms of intermittent dysphagia to solids over the past 6 months. She will note that approximately one time per week she will have the sensation that food gets stuck in her midesophagus with associated pain that eventually resolved spontaneously. Her hematuria has resolved. Consultants: None Hospital Course: The patient was admitted and underwent the above-mentioned operation without complication. She was stable for discharge the following morning. Pathology: Pending Disposition: The patient was discharged on her first postsurgical day. Follow-up Plan: She will follow-up in the office with Dr. Bone in 2 weeks. Acetaminophen (Acetaminophen) 325 Mg Tablet 500 MG PO Q4H PRN PRN For Fever ( Reported) Amlodipine (Amlodipine) 5 Mg Tablet 5 MG PO DAILY (Reported) Atorvastatin Calcium (Atorvastatin Calcium) 40 Mg Tablet 40 MG PO PM (Reported) Calcium Carbonate (Calcium) 600 Mg Tablet 600 MG PO DAILY (Reported) Cholecalciferol (Vitamin D3) (Vitamin D3) 2,000 Unit Capsule 2,000 UNIT PO DAILY (Reported) Colestipol (Colestipol) 1 Gm Tablet 2 GM PO BID (Reported) Hydrochlorothiazide (Hydrochlorothiazide) 25 Mg Tablet 25 MG PO DAILY (Reported ) Hydrocodone-Acetaminophen 5-325 mg (Hydrocodone-Acetaminophen 5-325 mg) 1 Each Tablet 1-2 TABLET PO Q4H PRN PRN For Moderate Pain Ibuprofen (Ibuprofen) 200 Mg Capsule 400 MG PO QID PRN PRN For Pain (Reported) Lorazepam (Lorazepam) 0.5 Mg Tablet 0.5 MG PO TID PRN PRN For Anxiety (Reported ) Milk Thistle (Milk Thistle) 500 Mg Capsule 250 MG PO BID (Reported) Naproxen Sodium (Aleve) 220 Mg Capsule 220 MG PO BID PRN PRN For Pain (Reported ) Milton-3/Dha/Epa/Fish Oil (Fish Oil 1,000 mg Softgel) 1 Each Capsule 2 EACH PO DAILY (Reported) Oxybutynin Chloride ER (Oxybutynin Chloride ER) 10 Mg Tab.er.24 15 MG PO DAILY ( Reported) copies to: Roberto Mendoza MD; Jeffrey Barnes Fred H PA-C Jul 09, 2016 09:54
--- NOTE | 2016-07-09 11:11 | NUR ---
DISCHARGE: Pt given all dc instructions and acknowledgement recieved of understanding. Iv sl dc'd cannula intact. Leg bag given and pt declined additional instructions as she has had the leg beg before. Script given. Pt to car via wheelchair at 1100.
--- NOTE | 2016-07-09 12:39 | PROG NOTE ---
[address] [address] PROGRESS NOTE PATIENT: CHRISTIE PORTER : 1940 MR#: [id number] ADMIT: 07/08/2016 JOB ID: [id number] DATE: 07/09/2016 SUBJECTIVE: The patient is seen postoperative day one from her laparoscopic gastric tumor resection. She had an uneventful night. She is having adequate pain control with almost just Tylenol, only requiring one dose of Vicodin. OBJECTIVE: She has remained afebrile. She has been hemodynamically normal overnight, other than one episode of tachycardia around 8 p.m. This morning she is alert and oriented. She is comfortable. Her incisions look fine. Her belly is soft. LABORATORY: She has a slight leukocytosis of 15.7, which is anticipated in the immediate postoperative period. Her hematocrit is stable at 36.9. ASSESSMENT AND PLAN: This is a 76-year-old female, postoperative day one from laparoscopic gastric mass resection with gastric wedge resection. She is doing well. I think she is fine to go home. I advised her to maintain a soft diet with small portions more frequently throughout the day to avoid gastric distention, nausea, or vomiting. I gave her indications for seeking medical attention. She can follow up with either myself or Dr. Bone in a couple of weeks.
--- NOTE | 2016-07-13 14:25 | PATH ---
SURGICAL PATHOLOGY Attending Physician:Xavier Fernandez MD CASE STATUS: Signed Out * Amended * PATIENT NAME: CHRISTIE PORTER PID: [id number] : 1940 DATE COLLECTED:07/08/2016 23:49 SPECIMEN: Mass, NOS CLINICAL HISTORY: PERIGASTRIC MASS 1). GASTRIC MASS FINAL DIAGNOSIS: Gastric Mass: Gastrointestinal stromal tumor. The surgical margins appear negative. ICD10: C16. GROSS DESCRIPTION: The specimen is received in formalin, labeled with the patient's name, sublabeled as gastric mass and consists of a solid rubbery serosa covered well-circumscribed mass (3.2 x 2.2 x 1.8 cm) with attached adipose tissue (up to 3.2 cm in depth). The resection margins are received stapled. The mass involves the resection margin and is 2.5 cm from the radial resection margin. The cut surface is normal sanchez-white, solid-cystic and homogenous. The cavity is (0.6 cm-1.2 cm) contain red-brown clear fluid. The serosa is castillo, smooth and shiny. Ink code: black-resection margin. (A-C) mass, serially sectioned, route sales representative; (D) radial resection margin. 07/09/16 JM MICRO DESCRIPTION: Sections reveal a submucosal tumor composed of fascicles of spindle cells. The mitotic rate is less than 5 per 50 high-power field. No necrosis is found. Sections, along with appropriate controls are incubated with the following antibodies: CD117 - positive. DOG-1 - positive. Smooth muscle actin - negative. 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 ICD-9 CODES: CPT CODES: 1: 38908, 01680, 90194, 86722 AMENDMENT(S): Amended: 07/14/2016 by Sana Durán Reason:Additional Information Received The mitotic rate is less than 5 per 50 high-power field. Previous Signout Date: 07/13/2016 Electronically Signed Out Manan Ordaz MD [facility] [address], [place] [address] Technical component performed at [facility] [address], [address]
== END 2016-07-08 23:59 | disposition home or self-care (01) ==
LOC: SAS 09:13 → OSC 15:48 → SAS 23:59
PROVIDERS: ATTEND General Practice
DX: D48.1 Neoplasm of uncertain behavior of connective and other soft tissue (principal); I10 Essential (primary) hypertension; Z85.3 Personal history of malignant neoplasm of breast; Z87.891 Personal history of nicotine dependence; E78.5 Hyperlipidemia, unspecified; M19.91 Primary osteoarthritis, unspecified site
CPT/HCPCS: 36415; 43659; 85025; 86850; J0690; J1100; J2370; J2405; J2710; J2765; J3010; J7120